=== PATIENT | male | born 1990 | race Caucasian/White ===

== ENCOUNTER 2023-12-05 20:45 | Emergency (ER) | payer SELFPAY ==
[~2023-12-05] VITALS: Ht 177.8 cm; Wt 122.5 kg
[2023-12-05 20:58] VITALS: BP 126/88; PULSE 112; RESP 18; TEMP 98.8
[2023-12-05] MEDS ORDERED: TORADOL ONE (20:58)
[2023-12-05] MEDS ORDERED: SUBLIMAZE 100MCG/2ML ONE (20:58)
[2023-12-05] MEDS: SUBLIMAZE 100MCG/2ML IV STA (20:59)
[2023-12-05] MEDS: TORADOL IV STA (20:59)
[2023-12-05 21:47] VITALS: BP 109/59; PULSE 95; RESP 18; TEMP 98.8
[2023-12-05] MEDS ORDERED: KETO10TA PO (21:47)
== END 2023-12-05 22:00 | disposition home or self-care (01) ==
LOC: ER 20:45
DX: S90.32XA Contusion of left foot, initial encounter (principal); R00.0 Tachycardia, unspecified; R03.0 Elevated blood-pressure reading, without diagnosis of hypertension; X58.XXXA Exposure to other specified factors, initial encounter; Y93.39 Activity, other involving climbing, rappelling and jumping off; Y92.89 Other specified places as the place of occurrence of the external cause; Y99.8 Other external cause status
CPT/HCPCS: 99284; 96374; 96375; 73610; 73630; J1885; J3010